=== PATIENT | female | born 1960 | race Caucasian/White ===

== ENCOUNTER → 2020-09-19 07:09 | Outpatient (CLI) | payer BC, SELFPAY ==
--- NOTE | ~2020-09-19 | MM_ITS ---
EXAMINATION: MM screening [facility] BI w ottoniel HISTORY: Screening TECHNIQUE: Craniocaudal and mediolateral oblique 3-D tomosynthesis images were obtained and synthetic 2-D images were generated. CAD analysis was submitted and interpreted. COMPARISON: Comparison to multiple prior studies sequentially, with oldest reviewed study dated 02/18. BREAST PARENCHYMAL COMPOSITION: There are scattered areas of fibroglandular density. FINDINGS: There is no evidence of suspicious mass, calcification, or architectural distortion to sugg est malignancy in either breast. There has been no suspicious interval change. IMPRESSION: 1. No mammographic evidence of malignancy. 2. Recommend routine screening mammography in one year. BI-RADS Category 1: Negative Reviewed, dictated and finalized at location A.
== END ==
PROVIDERS: PCP Family Medicine Adolescent Medicine; Visit Provider Family Medicine Adolescent Medicine
DX: Z12.31 Encounter for screening mammogram for malignant neoplasm of breast (principal)
CPT/HCPCS: 77063; 77067

== ENCOUNTER 2021-12-11 00:12 | Day surgery (SDC) | payer BC, SELFPAY ==
[2021-11-25 15:00] VITALS: BMI 21.7
[2021-12-11 06:56] VITALS: BP 149/86; PULSE 92; RESP 20; TEMP 35.3; O2SAT 100; BMI 21.2
[2021-12-11] MEDS: LACTATED RINGERS 1,000 ML 150 ML IV CONT (07:21)
--- NOTE | 2021-12-11 07:45 | P.PNAN_ITS ---
Anes - Initial Pre Proc Eval Procedure: Operation Date: 12/11/21 08:00 Proposed Procedures p Screening Colonoscopy - Angel Crooks MD Date/Time: 12/11/21 07:45 Surgeon: Angel Crooks MD Pre Op Diagnosis: family hx colon ca, neoplasm screening Patient Data Age: 61 Gender: F Height: 1.57 m Weight: 52.8 kg Last Vital Signs Temp 95.5 F L 12/11/21 06:56 Pulse 92 12/11/21 06:56 Resp 20 12/11/21 06:56 BP 149/86 H 12/11/21 06:56 Pulse Ox 100 12/11/21 06:56 O2 Del Method Room Air 12/11/21 06:56 Allergies Allergy/AdvReac Type Severity Reaction Status Date / Time No Known Allergies Allergy Verified 12/11/21 06:55 Home Medications Medication Instructions Recorded Confirmed Type lisinopril 20 1.5 tablet PO DAILY #90 tabs 09/25/21 12/11/21 Rx mg-hydrochlorothiazide 12.5 mg tablet diclofenac sodium 75 mg See Rx Instructions .Route 10/14/21 12/11/21 Rx tablet,delayed release .COMPLEX #60 tabs Lactobacillus 1 cap PO DAILY 11/25/21 12/11/21 History acidophilus-Bifidobac.animalis 2.5 billion cell capsule (Daily Probiotic) ibuprofen 600 mg tablet 600 mg PO Q6H PRN Pain 11/25/21 12/11/21 History pravastatin 20 mg tablet 20 mg PO DAILY 11/25/21 12/11/21 History Patient hx anesthesia problems: none Family hx anesthesia problems: none Results Review: All pre-operative results and documents have been reviewed as part of the pre- operative evaluation. [facility] Past Medical History Medical History Hypertension Osteopenia Pure hypercholesterolemia, unspecified Surgical History Surgical History History of Family History Family History Mother Colon cancer Father Heart disease Social History Social History (Updated 09/25/21 @ 11:03 by Lou Caballero MA) Smoking status: Former smoker Second hand tobacco smoke exposure: No Alcohol intake: current Drinks per week: 4 Alcohol use details: weekends Substance use: never Substance use type: does not use Living arrangements: with family Gender identity (if verbalized by the patient): Female Sexual Orientation (if Verbalized by the Patient): Straight or Heterosexual Spiritual care concerns: No Agree to blood products: Yes Anes - Eval Final PreProcedure Day of Procedure 12/11/21 07:45 Patient weight: normal Heart: regular rate and rhythm Lungs: clear to auscultation Airway: Mallampati scale class II Neurological: alert and oriented Last oral intake: >/= 8 hours ASA classification: II Emergent: no Anesthetic plan: proceed Anesthesia type and monitoring: general GIVS and standard monitoring Results Review: All pre-operative results and documents have been reviewed as part of the pre- operative evaluation. Informed Consent: The patient's anesthetic plan and its attendant risks and benefits were discussed with the patient/family/POA. Questions were solicited and answers provided to the satisfaction of the patient/family/POA.
--- NOTE | 2021-12-11 07:53 | P.HP_ITS ---
H&P: HPI History of Present Illness Date/Time: 12/11/21 07:53 Chief Complaint: family history of colon cancer. Narrative: This is 61-year-old white female patient referred for colonoscopy. Patient's family history is significant that her mother had colon cancer. Patient reports that her own weight appetite and bowel movements are normal. Patient denies abdominal pain. She has had no bleeding. She presents today for neoplasia screening colonoscopy. [facility] Past Medical History Medical History Hypertension Osteopenia Pure hypercholesterolemia, unspecified Surgical History Surgical History History of Family History Family History Mother Colon cancer Father Heart disease Social History Social History (Updated 09/25/21 @ 11:03 by Lou Caballero MA) Smoking status: Former smoker Second hand tobacco smoke exposure: No Alcohol intake: current Drinks per week: 4 Alcohol use details: weekends Substance use: never Substance use type: does not use Living arrangements: with family Gender identity (if verbalized by the patient): Female Sexual Orientation (if Verbalized by the Patient): Straight or Heterosexual Spiritual care concerns: No Agree to blood products: Yes Meds Home Medications and Allergies Home Medications Medication Instructions Recorded Confirmed Type lisinopril 20 1.5 tablet PO DAILY #90 tabs 09/25/21 12/11/21 Rx mg-hydrochlorothiazide 12.5 mg tablet diclofenac sodium 75 mg See Rx Instructions .Route 10/14/21 12/11/21 Rx tablet,delayed release .COMPLEX #60 tabs Lactobacillus 1 cap PO DAILY 11/25/21 12/11/21 History acidophilus-Bifidobac.animalis 2.5 billion cell capsule (Daily Probiotic) ibuprofen 600 mg tablet 600 mg PO Q6H PRN Pain 11/25/21 12/11/21 History pravastatin 20 mg tablet 20 mg PO DAILY 11/25/21 12/11/21 History Allergies Allergy/AdvReac Type Severity Reaction Status Date / Time No Known Allergies Allergy Verified 12/11/21 06:55 Vital Signs Vital Signs - 24 hr 12/11/21 06:56 Temperature 95.5 F L Pulse Rate 92 Respiratory Rate 20 Blood Pressure 149/86 H Pulse Oximetry 100 Oxygen Delivery Room Air Exam Narrative: Physical exam reveals patient be alert. Vital signs stable. HEENT exam is unremarkable. Patient is anicteric. Lungs are clear to auscultation and percussion. Heart is without murmur or extra sounds. Abdomen bowel sounds are present soft nontender with no organomegaly. Digital external rectal exam is normal. Assessment and Plan Assessment and plan (1) Family history of colon cancer in mother: Code(s): Z80.0 - Family history of malignant neoplasm of digestive organs Status: Acute Assessment and Plan: Patient's mother had colon cancer. Her has had colon cancer. Plan is for surveillance colonoscopy now and consider this a 5 year intervals in the future.
[2021-12-11 08:16] VITALS: BP 121/72; PULSE 62; RESP 20; O2SAT 98
[2021-12-11 08:26] VITALS: BP 106/63; PULSE 64; RESP 20; O2SAT 98
[2021-12-11 08:36] VITALS: BP 114/68; PULSE 64; RESP 18; O2SAT 98
== END 2021-12-11 08:43 | disposition home or self-care (01) ==
PROVIDERS: PCP Family Medicine Adolescent Medicine; Visit Provider Internal Medicine Gastroenterology
PROC: 0DJD8ZZ Inspection of Lower Intestinal Tract, Via Natural or Artificial Opening Endoscopic (ICD-10-PCS; CPT 45378; principal; 2021-12-11 08:00)
DX: Z12.11 Encounter for screening for malignant neoplasm of colon (principal); Z80.0 Family history of malignant neoplasm of digestive organs; K64.8 Other hemorrhoids; I10 Essential (primary) hypertension; M19.90 Unspecified osteoarthritis, unspecified site; E78.00 Pure hypercholesterolemia, unspecified; Z87.891 Personal history of nicotine dependence
CPT/HCPCS: 45378; J2704; J7120

== ENCOUNTER → 2023-05-13 13:03 | Outpatient (CLI) | payer BC, SELFPAY ==
--- NOTE | ~2023-05-13 | MM_ITS ---
EXAMINATION: MM screening [facility] BI w ottoniel HISTORY: Screening TECHNIQUE: Craniocaudal and mediolateral oblique 3-D tomosynthesis images were obtained and synthetic 2-D images were generated. CAD analysis was submitted and interpreted. COMPARISON: Comparison to multiple prior studies sequentially, with oldest reviewed study dated 01/19. BREAST PARENCHYMAL COMPOSITION: Not dense: There are scattered areas of fibroglandular density. FINDINGS: There is increasing prominence of right periareolar asymmetry on CC view. The left breast i s stable without evidence for malignancy. IMPRESSION: 1. Increasing prominence of right periareolar asymmetry on CC view. 2. Additional mammographic views and possible breast ultrasound are recommended. BI-RADS Category 0: Incomplete: Needs additional imaging evaluation. Reviewed, dictated and finalized at location A. [employer] IMPRESSION: 1. Increasing prominence of right periareolar asymmetry on CC view. 2. Additional mammographic views and possible breast ultrasound are recommended . BI-RADS Category 0: Incomplete: Needs additional imaging evaluation.
--- NOTE | ~2023-05-13 | DEXA_ITS ---
Bone Density Report Name: RICARDO MADDEN Age: 63 Sex: Female Ethnicity: White Date of : 1960 Indication: osteopenia; height loss; postmenopausal Referring Provider: ESSENCE LARA Study: Bone densitometry was performed. Exam Date: May 13, 2023 Accession number: [id number] Bone Density: Region BMD T-score Z-score Classification AP Spine (L1, L2) 0.922 -0.5 0.9 Normal Femoral Neck (Left) 0.550 -2.7 -1.3 Osteoporosis Total Hip (Left) 0.735 -1.7 -0.6 Osteopenia Femoral Neck (Right) 0.564 -2.6 -1.2 Osteoporosis Total Hip (Right) 0.720 -1.8 -0.8 Osteopenia Total Hip Mean 0.728 -1.8 -0.7 Osteopenia World Health Organization criteria for BMD impression classify patients as: Normal (T-score at or above -1.0), Osteopenia (T-score between -1.0 and -2.5), or Osteoporosis (T-score at or below -2.5). 10-year Fracture Risk: FRAX not reported because: Some T-score for Spine Total or Hip Total or Femoral Neck at or below -2.5 Previous Exams: Region Exam Age BMD T-score BMD Change BMD Change Date g/cm2 vs Baseline vs Previous AP Spine(L1, L2) 05/13/2023 63 0.922 -0.5 0.232* 0.146* 01/27/2018 57 0.776 -1.8 0.087* 0.043* 01/31/2015 54 0.733 -2.2 0.044* 0.044* 03/01/2012 51 0.689 -2.6 Total Hip(Left) 05/13/2023 63 0.735 -1.7 0.008 -0.030* 01/27/2018 57 0.766 -1.4 0.038* 0.035* 01/31/2015 54 0.731 -1.7 0.004 0.004 03/01/2012 51 0.727 -1.8 Total Hip(Right) 05/13/2023 63 0.720 -1.8 -0.010 -0.010 01/27/2018 57 0.731 -1.7 0.001 0.011 01/31/2015 54 0.720 -1.8 -0.010 -0.010 03/01/2012 51 0.730 -1.7 *Denotes significance at 95% confidence level, LSC for AP Spine = 0.022 g/cm2, LSC for Total Hip = 0.027 g/cm2 Clinical Information Provided by Patient: Patient maximum height was 62.5 Menopause Age: 49 No regular weight bearing exercise Drinks caffeinated beverages Onset of menses at age 13 Number of children 2 Impression: The patient has osteoporosis, based on the Left Femoral Neck T-score. The BMD for the Total Hip(Left) decreased, changing by -0.030 since the last DXA exam. Discussion: INCREASED RISK OF FRACTURE. BONE DENSITY IS UNDESIRABLY LOW AT ONE OR MORE SKELETAL SITES, CONSISTENT WITH POSTMENOPAUSAL OSTEOPOROSIS. This patient's l
== END ==
PROVIDERS: PCP Family Medicine Adolescent Medicine; Visit Provider Family Medicine Adolescent Medicine
DX: Z12.31 Encounter for screening mammogram for malignant neoplasm of breast (principal); Z78.0 Asymptomatic menopausal state; R92.8 Other abnormal and inconclusive findings on diagnostic imaging of breast; M81.0 Age-related osteoporosis without current pathological fracture; M85.852 Other specified disorders of bone density and structure, left thigh; M85.851 Other specified disorders of bone density and structure, right thigh
CPT/HCPCS: 77063; 77067; 77080

== ENCOUNTER 2023-06-09 07:34 | Outpatient (CLI) | payer BC, SELFPAY ==
--- NOTE | ~2023-06-09 | MMUS_ITS ---
EXAMINATION: MM diagnostic [facility] RT w ottoniel, US breast RT limited HISTORY: Follow-up right breast asymmetry TECHNIQUE: Additional 3-D tomosynthesis images of the right breast were performed and synthetic 2-D i mages were generated. CAD analysis was submitted and interpreted. High resolution Limited right breas t ultrasound was performed. COMPARISON: Comparison to multiple prior studies sequentially, with oldest reviewed study dated 01/19. BREAST PARENCHYMAL COMPOSITION: Not dense: There are scattered areas of fibroglandular density. FINDINGS: MAMMOGRAPHIC FINDINGS: There are no suspicious masses, calcifications or architectural distortion of the right breast to sug gest malignancy. ULTRASOUND: Limited right breast ultrasound: Normal heterogeneous echotexture without focal solid or cystic mass. IMPRESSION: 1. No evidence for malignancy in the right breast. 2. Routine yearly screening mammogram and regular clinical breast examination are recommended. BI-RADS Category 1: Negative Reviewed, dictated and finalized at location A. IMPRESSION: 1. No evidence for malignancy in the right breast. 2. Routine yearly screening mammogram and regular clinical breast examination a re recommended. BI-RADS Category 1: Negative
== END 2023-06-09 07:35 ==
LOC: MICIMG 07:35
PROVIDERS: PCP Family Medicine Adolescent Medicine; Visit Provider Family Medicine Adolescent Medicine
DX: R92.8 Other abnormal and inconclusive findings on diagnostic imaging of breast (principal)
CPT/HCPCS: 76642; 77061; 77065; G0279

== ENCOUNTER 2023-12-22 12:24 | Observation (INO) | payer BC, SELFPAY ==
--- NOTE | ~2023-12-22 | CT_ITS ---
EXAMINATION:CT diagnostic chest wo con DATE: 12/22/2023 19:08 INDICATION: Cough. Shortness of breath. TECHNIQUE: Computed tomography (CT) of the chest was performed without intravenous contrast. Automate d exposure control and iterative reconstruction technique were employed. The dose-length product (DLP ) was 123.79 mGy-cm. COMPARISON: None. FINDINGS: There is mild scarring at the lung apices. There is mild atelectasis bilaterally. There is mild bronchiectasis in right middle lobe and lingula. No pleural effusion. The heart size is normal. No pericardial effusion. There is a small sliding hiatal hernia. There is severe thoracic spondylosis . There is mild chronic height loss of multiple vertebral bodies. IMPRESSION: 1. Mild chronic lung disease. 2. Small sliding hiatal hernia. Reviewed, dictated and finalized at location A.
--- NOTE | ~2023-12-22 | XR_ITS ---
EXAMINATION: XR chest 2V DATE: 12/22/2023 17:52 INDICATION: Cough. Nausea and vomiting. TECHNIQUE: Frontal and lateral views of the chest were obtained. COMPARISON: None. FINDINGS: There is mild scarring at the lung apices. No pleural effusion or pneumothorax. The heart s ize is normal. IMPRESSION: 1. Mild scarring at the lung apices. Reviewed, dictated and finalized at location A.
[2023-12-22 12:29] VITALS: BP 165/86; PULSE 105; RESP 16; TEMP 36.5; O2SAT 100
[2023-12-22 16:26] VITALS: BP 158/83; PULSE 94; RESP 15; O2SAT 100
[2023-12-22 17:14] LABS: Basophils Percent Auto 0.3 % (0.2-1.2); Eosinophils Absolute Auto 0.1 K/mm3 (0-0.3); Eosinophils Percent Auto 0.9 % (0-4.4); Hematocrit 33.3 % (37.0-47.0); Hemoglobin 11.9 g/dL (12.0-15.0); Immature Granulocyte Absolute 0.06 K/mm3 (0.00-0.031); Immature Granulocyte Percent A 0.6 % (0-0.5); Immature Platelet Fraction Pct 2.5 % (0.9-11.2); Lymphocytes Absolute Auto 1.22 K/mm3 (0.9-3.2); Lymphocytes Percent Auto 13.1 % (18.3-44.2); Mean Corpuscular HGB Conc 35.7 g/dl (32-36); Mean Corpuscular Hemoglobin 30.7 pg (26-34); Mean Corpuscular Volume 85.8 fl (80-100); Monocytes Absolute Auto 1.1 K/mm3 (0.1-0.6); Monocytes Percent Auto 12.1 % (2.6-8.5); Neutrophils Absolute Auto 6.8 K/mm3 (1.3-6.7); Platelet Count Result 330 k/mm3 (150-375); Red Blood Count 3.88 M/mm3 (4.2-5.4); Red Cell Distribution Width 12.4 % (11.5-14.5); White Blood Count 9.3 K/mm3 (4.5-10.0)
[2023-12-22 17:18] LABS: Appearance Urine Clear (Clear); Bilirubin Urine Negative (Negative); Blood Urine Negative (Negative); Color Urine Yellow (Yellow); Glucose Urine UA Negative (Negative); Ketones Urine 3+ mg/dL (Negative); Leukocyte Esterase Ur Negative LEU/UL (Negative); Nitrate Urine Negative (Negative); Protein Urine Trace mg/dL (Negative); Specific Grav Ur 1.013 (1.001-1.035); Urobilinogen Urine 0.2 mg/dL (<2.0); pH Urine 5.5 (5.0-9.0)
[2023-12-22 17:19] LABS: Add Urine Microscopic? YES; Bacteria Urine None Seen /hpf; Non Pathogenic Casts 0-2; RBC Urine 0-2 /hpf (0-2); Squamous Epithelial Cell Urine None Seen /hpf (Few); WBC Urine 0-5 /hpf (0-3)
[2023-12-22 17:24] LABS: Platelet Estimate Adequate (Adequate); Schistocytes None Seen
[2023-12-22 17:25] LABS: Alanine Aminotransferase 29 U/L (6-35); Albumin Level 4.7 g/dL (3.5-5.1); Alkaline Phosphatase 63 U/L (38-126); Anion Gap 11 mmol/L (4-12); Aspartate Amino Transferase 27 U/L (14-36); Bilirubin,Total 1.3 mg/dL (0.2-1.3); Blood Urea Nitrogen 11 mg/dL (7-17); Calcium 9.2 mg/dL (8.4-10.2); Carbon Dioxide 26 mmol/L (22-30); Chloride 81 mmol/L (98-107); Estimated CRCL calculation 77 ml/min; Estimated Glomerular Filt Rate > 60; Glucose 94 mg/dL (65-110); Lipase 90 U/L (23-300); Sodium 118 mmol/L (137-145)
--- NOTE | 2023-12-22 17:40 | ED.NAVMDI ---
HPI - Nausea/Vomiting/Diarrhea General Chief complaint: Nausea/Vomiting/Diarrhea Stated complaint: N/V, abd pain Time Seen by Provider: 12/22/23 16:20 History of Present Illness HPI Narrative: 63-year-old female with a history of hypertension, osteoporosis presenting with nausea vomiting. Patient states that she has been coughing for a lot was for the last week or 2. She was treated for bronchitis with an inhaler. States that she has recently been on antibiotics and steroids for a skin infection. She has also been taking a lot of Mucinex. States that for the last few days she has had persistent nausea and vomiting and is unable to keep anything down. She is concerned the medications have irritated her stomach. No chest or abdominal pain. No shortness of breath. No fevers. No leg swelling. Related Data Home Medications Medication Instructions Recorded Confirmed Lactobacillus 1 cap PO DAILY 11/25/21 12/19/23 acidophilus-Bifidobac.animalis 2.5 billion cell capsule (Daily Probiotic) ibuprofen 600 mg tablet 600 mg PO Q6H PRN Pain 11/25/21 12/19/23 Allergies Allergy/AdvReac Type Severity Reaction Status Date / Time No Known Allergies Allergy Verified 12/22/23 12:34 Review of Systems Review of Systems: All systems reviewed & are unremarkable except as noted in HPI and below PMFSH Past Medical History Medical History Hypertension Osteopenia Pure hypercholesterolemia, unspecified Surgical History Surgical History History of Family History Family History Mother Colon cancer Father Heart disease Social History Social History Smoking status: Former smoker Second hand tobacco smoke exposure: No Alcohol intake: current Drinks per week: 4 Alcohol use details: weekends Substance use: never Substance use type: does not use Living arrangements: with family Occupation/Education: occupation Gender identity (if verbalized by the patient): Female Sexual Orientation (if Verbalized by the Patient): Straight or Heterosexual Spiritual care concerns: No Agree to blood products: Yes Exam Narrative: GENERAL: Nontoxic, no acute distress, pleasant cooperative HEAD: Normocephalic, atraumatic. EYES: PERRLA and EOMI. ENT: Mucous membranes moist. NECK: Supple. CHEST: Clear to auscultation. No respiratory distress. HEART: Regular rate and rhythm ABDOMEN: Soft, nontender, nondistended EXTREMITIES: Normal range of motion. No edema. SKIN: Warm, dry, no rash. NEURO: No focal deficits. Alert and oriented x3. PSYCH: Normal mood and affect. Course Vital Signs Vital signs: Vital Signs Temperature 97.7 F 12/22/23 12:29 Pulse Rate 105 H 12/22/23 12:29 Respiratory Rate 16 12/22/23 12:29 Blood Pressure 165/86 H 12/22/23 12:29 Pulse Oximetry 100 12/22/23 12:29 Temperature 97.7 F 12/22/23 12:29 Pulse Rate 85 12/22/23 21:53 Respiratory Rate 18 12/22/23 21:53 Blood Pressure 141/76 H 12/22/23 21:53 Pulse Oximetry 98 12/22/23 21:53 MDM - Nausea/Vomiting/Diarrhea MDM Narrative Medical decision making narrative: 63-year-old female presenting with nausea and vomiting as well as productive cough. Vitals are stable. Exam remarkable for the above. Blood work concerning for a sodium of 118. Chest imaging shows no acute abnormalities. IV fluids are ongoing. Patient requires admission for further management of hyponatremia. She is agreeable with this plan. I spoke with the hospitalist who has accepted her for admission. Differential Diagnosis Differential diagnosis: Likely dehydration and other (Nausea and vomiting, hyponatremia) Medical Records Attestation: I reviewed the patient's medical records. Lab Data
[2023-12-22] MEDS: SODIUM CHLORIDE 0.9% IV 1,000 ML 999 ML IV CONT ×2 (17:52→19:29)
[2023-12-22] MEDS: ONDANSETRON INJ 4 MG/2 ML VIAL IV PUSH (17:53)
[2023-12-22] MEDS: FAMOTIDINE 20 MG/2 ML VIAL IV PUSH (17:53)
[2023-12-22 18:58] VITALS: BP 145/76; PULSE 98; RESP 18; O2SAT 100
[2023-12-22 19:16] LABS: Influenza A QL RT-PCR Negative (Negative); Influenza B QL RT-PCR Negative (Negative); RSV RNA, RT-PCR Negative (Negative); SARS-CoV-2 RNA PCR Negative (Negative)
[2023-12-22 19:46] LABS: Creatinine Urine 31.5 mg/dL
[2023-12-22 19:48] LABS: Sodium Urine Random 11 meq/L
--- NOTE | 2023-12-22 20:40 | PM.IMHP ---
H&P: HPI History of Present Illness Date/Time: 12/22/23 20:40 Chief Complaint: cough Narrative: this is a 63-year-old female with past medical history significant for hypertension, osteopenia, DJD, chronic obstructive pulmonary disease, dyslipidemia. Patient presents to the emergency room due to a week of persistent cough, shortness of breath, patient had been to the urgent care which she was prescribed Solu pack and Z-Bruce, however patient with persistent cough, dry, unable to take anything p.o. preliminary workup was significant for sodium 118. Patient was ruled out for COVID-19 influenza type A influenza type B and RSV EXAMINATION: XR chest 2V DATE: 12/22/2023 17:52 INDICATION: Cough. Nausea and vomiting. TECHNIQUE: Frontal and lateral views of the chest were obtained. COMPARISON: None. FINDINGS: There is mild scarring at the lung apices. No pleural effusion or pneumothorax. The heart size is normal. IMPRESSION: 1. Mild scarring at the lung apices. EXAMINATION:CT diagnostic chest wo con DATE: 12/22/2023 19:08 INDICATION: Cough. Shortness of breath. TECHNIQUE: Computed tomography (CT) of the chest was performed without intravenous contrast. Automated exposure control and iterative reconstruction technique were employed. The dose-length product (DLP) was 123.79 mGy-cm. COMPARISON: None. FINDINGS: There is mild scarring at the lung apices. There is mild atelectasis bilaterally. There is mild bronchiectasis in right middle lobe and lingula. No pleural effusion. The heart size is normal. No pericardial effusion. There is a small sliding hiatal hernia. There is severe thoracic spondylosis. There is mild chronic height loss of multiple vertebral bodies. IMPRESSION: 1. Mild chronic lung disease. 2. Small sliding hiatal hernia. Review of Systems Review of Systems: Cough, nausea, vomiting, poor per orally intake. [facility], [facility] Past Medical History Medical History Hypertension Osteopenia Pure hypercholesterolemia, unspecified Surgical History Surgical History History of Family History Family History Mother Colon cancer Father Heart disease Social History Social History Smoking status: Former smoker Second hand tobacco smoke exposure: No Alcohol intake: current Drinks per week: 4 Alcohol use details: weekends Substance use: never Substance use type: does not use Do You Feel Safe in your Home?: Yes Lack of Transportation: No Lack of Food: Never True Current Housing: I Have Housing Concerned About Future Housing: No Difficulty Paying Gas/Electric Bills: No Difficulty Paying for Meds: No Currently Unemployed: No Education: High School Diploma/GED Difficulty w/ Childcare or Family Care: No Living arrangements: with family Occupation/Education: occupation Gender identity (if verbalized by the patient): Female Sexual Orientation (if Verbalized by the Patient): Straight or Heterosexual Spiritual care concerns: No Agree to blood products: Yes Meds Home Medications and Allergies Home Medications Medication Instructions Recorded Confirmed Type Lactobacillus 1 cap PO DAILY 11/25/21 12/22/23 History acidophilus-Bifidobac.animalis 2.5 billion cell capsule (Daily Probiotic) ibuprofen 600 mg tablet 600 mg PO Q6H PRN Pain 11/25/21 12/22/23 History alendronate 70 mg tablet 70 mg PO WEEKLY #13 tabs 05/18/23 12/22/23 Rx lisinopril 20 See Rx Instructions .Route 08/15/23 12/22/23 Rx mg-hydrochlorothiazide 12.5 mg .COMPLEX #135 tabs tablet atorvastatin 20 mg tablet 20 mg PO DAILY #90 tabs 10/02/23 12/22/23 Rx diclofenac sodium 75 mg See Rx Instructions .Route 11/20/23 12/22/23 Rx tablet,delayed rele
[2023-12-22 21:27] VITALS: O2SAT 98
[2023-12-22 21:53] VITALS: BP 141/76; PULSE 85; RESP 18; O2SAT 98
[2023-12-22 22:14] VITALS: BMI 22.2
[2023-12-22 22:23] LABS: Glucose Point of Care 73 mg/dl (65-105)
--- NOTE | 2023-12-22 22:26 | ADMGEN ---
This patient, Jessica Marin, was admitted to Medical Room 343-01. Patient/family oriented to hospital policies and general routines including ID bracelet, bed and alarms, visiting hours, pain management, procedures, bathroom and other care routines, personal items, smoking policy, room service/diet, and visiting hours. Information on how to activate the Rapid Response Team has been discussed. Patient/Family are encouraged to report perceived risks to care and to ask questions if they do not understand what they are told or what they should do.
[2023-12-22 22:36] VITALS: BP 164/84; PULSE 107; RESP 18; TEMP 36.7; O2SAT 99
[2023-12-22 23:40] LABS: Anion Gap 11 mmol/L (4-12); Blood Urea Nitrogen 9 mg/dL (7-17); Carbon Dioxide 23 mmol/L (22-30); Chloride 92 mmol/L (98-107); Estimated CRCL calculation 65 ml/min; Estimated Glomerular Filt Rate > 60; Glucose 106 mg/dL (65-110); Potassium 3.6 mmol/L (3.4-5.0); Sodium 126 mmol/L (137-145)
[2023-12-22] MEDS: guaiFENesin/DEXTROMETHORPHAN 10 ML UDC PO (23:51)
[2023-12-22] MEDS: ACETAMINOPHEN 500 MG TABLET 1000 MG PO (23:52)
[2023-12-23] VITALS: PULSE 93
[2023-12-23 04:00] VITALS: PULSE 76
[2023-12-23] MEDS: guaiFENesin/DEXTROMETHORPHAN 10 ML UDC PO ×5 (04:36→21:13)
[2023-12-23 06:00] VITALS: BP 112/71; PULSE 70; RESP 16; TEMP 36.3; O2SAT 99
--- NOTE | 2023-12-23 07:44 | PM.IMPN ---
Progress Note: A&P Assessment and Plan (1) Hyponatremia: Code(s): E87.1 - Hypo-osmolality and hyponatremia Status: Acute Assessment and Plan: Na 118 on admission. Etiology likely dehydration from multiple emesis episodes and poor oral intake. Received 2 1L fluid bolus in the ED and Na 128. - IV NS 100 ml/hr - Repeat Na level - add urine osmolality, serum osmolality, and urine sodium - no focal deficits on exam, situational/short term memory recall - Monitor I&Os, vital signs, neuro status and patient is a fall risk - Monitor serum electrolytes and CBC (2) Nausea & vomiting: Code(s): R11.2 - Nausea with vomiting, unspecified Status: Acute Assessment and Plan: Patient states for the past few days she has had profuse vomiting, unable to keep anything down. Denies sick contacts. - Covid/flu/rsv negative - see plan above 12/22: Patient denies vomiting, but still feels a bit nauseous. Tolerating her current diet well. (3) Hypertension: Code(s): I10 - Essential (primary) hypertension Status: Acute Assessment and Plan: Chronic, well controlled on home medication. - Lisinopril 20 mg-HCTZ 12.5 mg daily - Monitor Time Spent With Patient Time with patient: 25 - 35 minutes Subjective Date/time seen: 12/23/23 07:44 Interval history: 63 year old female with past medical history of hypertension, osteopenia, hypercholesterolemia, and COPD presents to the hospital for persistent cough and shortness of breath. Patient is pleasant sitting on her couch with at bedside. She states she is feeling better today, but continues to have mild nausea. She denies any vomiting at this time. She has been able to tolerate her current diet. Patients sodium level has risen to 128 on am labs. Will resume her IV fluids and reassess level tonight. Likely that the sodium was low due to dehydration and emesis. Patient denies any increased gait instability, confusion, tremors, lightheadedness/dizziness. She also denies chest pain, shortness of breath, palpitations and abdominal pain. Review of Systems Review of Systems: All systems reviewed & are unremarkable except as noted in HPI and below Exam Narrative: AF HR 70 RR 16 SpO2 99 BP 112/71 General: female in no acute respiratory distress who is nontoxic appearing, sitting on her couch HEENT: Normocephalic. Atraumatic. Extraocular movement intact. Sclera clear and anicteric. No facial asymmetry. Chest: Lungs are clear to auscultation bilaterally. No wheezes or crackles. CV: Heart was regular rate and rhythm. S1-S2. No murmurs, gallops, or rubs. Abd: Abdomen was soft. Nontender. Nondistended. Positive bowel sounds. No organomegaly or masses. Ext: No clubbing, cyanosis, or edema. Neuro: Patient is alert and oriented x4. Cranial nerves 2-12 are intact. Speech is clear. Objective Data Vital Signs Vital Signs: Vital Signs - 24 hr 12/22/23 12:29 12/22/23 16:26 12/22/23 18:58 Temperature 97.7 F Pulse Rate 105 H 94 98 Respiratory Rate 16 15 18 Blood Pressure 165/86 H 158/83 H 145/76 H Pulse Oximetry 100 100 100 Oxygen Delivery 12/22/23 21:53 12/22/23 22:36 12/23/23 00:00 Temperature 98.1 F Pulse Rate 85 107 H 93 Respiratory Rate 18 18 Blood Pressure 141/76 H 164/84 H Pulse Oximetry 98 99 Oxygen Delivery 12/22/23 21:27 12/23/23 04:00 12/23/23 06:00 Temperature 97.3 F L Pulse Rate 76 70 Respiratory Rate 16 Blood Pressure 112/71 Pulse Oximetry 98 99 Oxygen Delivery Room Air Intake/Output Intake/Output: Intake & Output 12/20/23 12/21/23 12/22/23 12/23/23 23:59 23:59 23:59 23:59 Intake Total 1999 480 Output Total 800 Balance 2000 -320 Meds/Results Medications: Active Medications Generic Name Dose Route Start Last Admin Trade Name Freq PRN Reason Stop Dose Admin Acetaminophen 1,000 mg 12/22/23 23:27 12/22/23 23:52 Acetaminophen 500 Mg Tablet PO 1,000 mg
[2023-12-23 08:04] VITALS: PULSE 81
[2023-12-23] MEDS: ACETAMINOPHEN 500 MG TABLET 1000 MG PO ×3 (08:04→21:12)
[2023-12-23 08:42] LABS: Basophils Absolute Auto 0.1 K/mm3 (0.0-0.1); Basophils Percent Auto 0.9 % (0.2-1.2); Eosinophils Absolute Auto 0.1 K/mm3 (0-0.3); Hematocrit 30.7 % (37.0-47.0); Hemoglobin 10.5 g/dL (12.0-15.0); Immature Granulocyte Absolute 0.06 K/mm3 (0.00-0.031); Immature Granulocyte Percent A 0.9 % (0-0.5); Lymphocytes Percent Auto 15.7 % (18.3-44.2); Mean Corpuscular HGB Conc 34.2 g/dl (32-36); Mean Corpuscular Hemoglobin 30.3 pg (26-34); Mean Corpuscular Volume 88.5 fl (80-100); Mean Platelet Volume 8.8 fl (7.4-10.4); Monocytes Absolute Auto 0.8 K/mm3 (0.1-0.6); Monocytes Percent Auto 12.3 % (2.6-8.5); Neutrophils Absolute Auto 4.3 K/mm3 (1.3-6.7); Neutrophils Percent Auto 68.2 % (45.5-73.1); Platelet Count Result 301 k/mm3 (150-375); Red Blood Count 3.47 M/mm3 (4.2-5.4); Red Cell Distribution Width 12.6 % (11.5-14.5); White Blood Count 6.4 K/mm3 (4.5-10.0)
[2023-12-23 08:53] LABS: Alanine Aminotransferase 25 U/L (6-35); Albumin Level 4.1 g/dL (3.5-5.1); Alkaline Phosphatase 52 U/L (38-126); Anion Gap 8 mmol/L (4-12); Aspartate Amino Transferase 25 U/L (14-36); Bilirubin,Total 0.7 mg/dL (0.2-1.3); Blood Urea Nitrogen 9 mg/dL (7-17); Calcium 9.1 mg/dL (8.4-10.2); Carbon Dioxide 25 mmol/L (22-30); Chloride 95 mmol/L (98-107); Estimated CRCL calculation 65 ml/min; Estimated Glomerular Filt Rate > 60; Glucose 97 mg/dL (65-110); Potassium 3.9 mmol/L (3.4-5.0); Sodium 128 mmol/L (137-145)
[2023-12-23] MEDS: SODIUM CHLORIDE 0.9% IV 1,000 ML 100 ML IV CONT (13:54)
[2023-12-23 14:00] VITALS: BP 110/62; PULSE 83; RESP 18; TEMP 36.6; O2SAT 100
[2023-12-23 19:13] LABS: Sodium 131 mmol/L (137-145)
[2023-12-23 22:35] VITALS: BP 136/71; PULSE 88; RESP 20; TEMP 36.4; O2SAT 100
[2023-12-24] MEDS: guaiFENesin/DEXTROMETHORPHAN 10 ML UDC PO ×2 (01:30→05:40)
[2023-12-24] MEDS: SODIUM CHLORIDE 0.9% IV 1,000 ML 100 ML IV CONT ×2 (01:31→11:34)
[2023-12-24] MEDS: ACETAMINOPHEN 500 MG TABLET 1000 MG PO (05:40)
[2023-12-24 05:49] LABS: Basophils Absolute Auto 0.1 K/mm3 (0.0-0.1); Basophils Percent Auto 0.9 % (0.2-1.2); Eosinophils Absolute Auto 0.2 K/mm3 (0-0.3); Eosinophils Percent Auto 3.3 % (0-4.4); Hematocrit 28.7 % (37.0-47.0); Hemoglobin 9.6 g/dL (12.0-15.0); Immature Granulocyte Absolute 0.06 K/mm3 (0.00-0.031); Immature Granulocyte Percent A 0.9 % (0-0.5); Lymphocytes Absolute Auto 1.17 K/mm3 (0.9-3.2); Mean Corpuscular HGB Conc 33.4 g/dl (32-36); Mean Corpuscular Hemoglobin 29.8 pg (26-34); Mean Corpuscular Volume 89.1 fl (80-100); Mean Platelet Volume 8.8 fl (7.4-10.4); Monocytes Absolute Auto 0.7 K/mm3 (0.1-0.6); Monocytes Percent Auto 10.6 % (2.6-8.5); Neutrophils Absolute Auto 4.6 K/mm3 (1.3-6.7); Neutrophils Percent Auto 67.3 % (45.5-73.1); Platelet Count Result 293 k/mm3 (150-375); Red Blood Count 3.22 M/mm3 (4.2-5.4); Red Cell Distribution Width 12.6 % (11.5-14.5); White Blood Count 6.9 K/mm3 (4.5-10.0)
[2023-12-24 06:00] VITALS: BP 131/80; PULSE 87; RESP 20; TEMP 36.3; O2SAT 98
[2023-12-24 06:03] LABS: Alanine Aminotransferase 21 U/L (6-35); Albumin Level 3.5 g/dL (3.5-5.1); Alkaline Phosphatase 46 U/L (38-126); Anion Gap 7 mmol/L (4-12); Aspartate Amino Transferase 21 U/L (14-36); Bilirubin,Total 0.3 mg/dL (0.2-1.3); Blood Urea Nitrogen 8 mg/dL (7-17); Calcium 8.5 mg/dL (8.4-10.2); Carbon Dioxide 23 mmol/L (22-30); Chloride 101 mmol/L (98-107); Estimated CRCL calculation 77 ml/min; Estimated Glomerular Filt Rate > 60; Glucose 94 mg/dL (65-110); Potassium 3.7 mmol/L (3.4-5.0); Sodium 131 mmol/L (137-145)
--- NOTE | 2023-12-24 09:11 | PM.IMPN ---
Progress Note: A&P Assessment and Plan (1) Hyponatremia: Code(s): E87.1 - Hypo-osmolality and hyponatremia Status: Acute Assessment and Plan: Na 118 on admission. Etiology likely dehydration from multiple emesis episodes and poor oral intake. Received 2 1L fluid bolus in the ED and Na 128. - IV NS 100 ml/hr - Repeat Na level - add urine osmolality, serum osmolality, and urine sodium - no focal deficits on exam, situational/short term memory recall - Monitor I&Os, vital signs, neuro status and patient is a fall risk - Monitor serum electrolytes and CBC 12/23- na 131 (2) Nausea & vomiting: Code(s): R11.2 - Nausea with vomiting, unspecified Status: Acute Assessment and Plan: Patient states for the past few days she has had profuse vomiting, unable to keep anything down. Denies sick contacts. - Covid/flu/rsv negative - see plan above 12/22: Patient denies vomiting, but still feels a bit nauseous. Tolerating her current diet well. (3) Hypertension: Code(s): I10 - Essential (primary) hypertension Status: Acute Assessment and Plan: Chronic, well controlled on home medication. - Lisinopril 20 mg-HCTZ 12.5 mg daily - Monitor Time Spent With Patient Time with patient: Greater than 35 minutes Subjective Date/time seen: 12/24/23 09:11 Interval history: 63 year old female with past medical history of hypertension, osteopenia, hypercholesterolemia, and COPD presents to the hospital for persistent cough and shortness of breath. Patient is pleasant sitting on her couch with at bedside. She states she is feeling better today, but continues to have mild nausea. She denies any vomiting at this time. She has been able to tolerate her current diet. Patients sodium level has risen to 128 on am labs. Will resume her IV fluids and reassess level tonight. Likely that the sodium was low due to dehydration and emesis. Patient denies any increased gait instability, confusion, tremors, lightheadedness/dizziness. She also denies chest pain, shortness of breath, palpitations and abdominal pain. 12/23- assuming care- pt is seen and examined. Review of Systems Review of Systems: Cough, nausea, vomiting, poor per orally intake. All systems reviewed & are unremarkable except as noted in HPI and below Exam Narrative: AF HR 70 RR 16 SpO2 99 BP 112/71 General: female in no acute respiratory distress who is nontoxic appearing, sitting on her couch HEENT: Normocephalic. Atraumatic. Extraocular movement intact. Sclera clear and anicteric. No facial asymmetry. Chest: Lungs are clear to auscultation bilaterally. No wheezes or crackles. CV: Heart was regular rate and rhythm. S1-S2. No murmurs, gallops, or rubs. Abd: Abdomen was soft. Nontender. Nondistended. Positive bowel sounds. No organomegaly or masses. Ext: No clubbing, cyanosis, or edema. Neuro: Patient is alert and oriented x4. Cranial nerves 2-12 are intact. Speech is clear. Const: General: comfortable, no acute distress, well developed, alert, awake, tired appearing and thin Nutritional Appearance: thin Orientation/consciousness: patient oriented x3 Other: coughing HENMT: Head: normal to inspection, normocephalic and atraumatic Ears: hearing grossly normal bilaterally Face/Nose/Sinus: normal facial exam Face and sinus: normal facial exam Eyes: General: appearance normal, both eyes and all related structures Pupils: Equal, round and reactive pupils present EOM: EOMs intact bilaterally Neck: Neck: full ROM, no lymphadenopathy and no JVD Thyroid: thyroid normal Lymphatic: no lymphadenopathy noted Resp: Effort & Inspection: normal respiratory effort and able to speak in complete sentences Auscultation: clear to auscultation bilaterally Cardio: Jugular venous distension: no JVD Rate: regular rate Rhythm: regular rhythm Heart sounds: S1 normal heart sound present and S2 normal heart sound present : General
--- NOTE | 2023-12-24 10:53 | PC.NURSE ---
Patient sitting on the side of the bed. She has concerns about her IV. Very scant amount of leakage under Tegaderm. No pain, redness, or swelling noted. Patient educated this can happen when IV is in the AC. Will continue to monitor site. Patient cooperative and bit emotional as she states she is just tired of the cough. Told her I would ask for Tessalon Pearls, as the Robitussen is not working, and to see if we can DC the fluids.
[2023-12-24] MEDS: BENZONATATE 100 MG CAPSULE 200 MG PO (12:32)
--- NOTE | 2023-12-24 12:46 | PM.DS ---
DS: Admitting Diagnosis Discharge Date 12/22 Admitting Diagnosis cough DS: Discharge Diagnosis Discharge Diagnosis (1) Hyponatremia: Code(s): E87.1 - Hypo-osmolality and hyponatremia Status: Acute Assessment and Plan: Na 118 on admission. Etiology likely dehydration from multiple emesis episodes and poor oral intake. Received 2 1L fluid bolus in the ED and Na 128. - IV NS 100 ml/hr - Repeat Na level - add urine osmolality, serum osmolality, and urine sodium - no focal deficits on exam, situational/short term memory recall - Monitor I&Os, vital signs, neuro status and patient is a fall risk - Monitor serum electrolytes and CBC 12/23- na 131 (2) Nausea & vomiting: Code(s): R11.2 - Nausea with vomiting, unspecified Status: Acute Assessment and Plan: Patient states for the past few days she has had profuse vomiting, unable to keep anything down. Denies sick contacts. - Covid/flu/rsv negative - see plan above 12/22: Patient denies vomiting, but still feels a bit nauseous. Tolerating her current diet well. (3) Hypertension: Code(s): I10 - Essential (primary) hypertension Status: Acute Assessment and Plan: Chronic, well controlled on home medication. - Lisinopril 20 mg-HCTZ 12.5 mg daily - Monitor DS: Summary Hospital Course Hospital Course: Interval history: 63 year old female with past medical history of hypertension, osteopenia, hypercholesterolemia, and COPD presents to the hospital for persistent cough and shortness of breath. Prior to admission, she was seen in urgent care and was prescribed Solu pack and Z-Bruce with no improvement. Her sodium improved to 131 and remained stable for couple of days. She had not been c/o nausea and reports no vomiting. We started her in Tessalon pearls. and she was stable for discharge with instructions to have a close f/u with PCP with a week for monitoring of her Na as well as resolution of her cough Status at Discharge Functional status at discharge: independent ambulation Overall status at discharge: patient is progressing back to baseline Time Spent with Patient Time attestation: Total time spent providing and/or coordinating discharge services: Time spent: Greater than 30 minutes Exam Narrative: General: female in no acute respiratory distress who is nontoxic appearing HEENT: Normocephalic. Atraumatic. Extraocular movement intact. Sclera clear and anicteric. No facial asymmetry. Chest: Lungs are clear to auscultation bilaterally. No wheezes or crackles. CV: Heart was regular rate and rhythm. S1-S2. No murmurs, gallops, or rubs. Abd: Abdomen was soft. Nontender. Nondistended. Positive bowel sounds. No organomegaly or masses. Ext: No clubbing, cyanosis, or edema. Neuro: Patient is alert and oriented x4. Cranial nerves 2-12 are intact. Speech is clear. Const: General: comfortable, no acute distress, well developed, alert and awake Orientation/consciousness: patient oriented x3 Other: coughing HENMT: Head: normal to inspection, normocephalic and atraumatic Ears: hearing grossly normal bilaterally Face/Nose/Sinus: normal facial exam Face and sinus: normal facial exam Eyes: General: appearance normal, both eyes and all related structures Pupils: Equal, round and reactive pupils present EOM: EOMs intact bilaterally Neck: Neck: full ROM, no lymphadenopathy and no JVD Thyroid: thyroid normal Lymphatic: no lymphadenopathy noted Resp: Effort & Inspection: normal respiratory effort and able to speak in complete sentences Auscultation: clear to auscultation bilaterally Cardio: Jugular venous distension: no JVD Rate: regular rate Rhythm: regular rhythm Heart sounds: S1 normal heart sound present and S2 normal heart sound present : General: Yes deferred Skin: Rashes: no rashes Wounds: no wounds Neuro: General: patient oriented x3 and CN's II-XI intact bilaterally Cranial nerves: Yes CN's II-X
[2023-12-24 13:59] VITALS: BP 135/67; PULSE 94; RESP 16; TEMP 37.1; O2SAT 100
== END 2023-12-24 14:05 | disposition home or self-care (01) ==
LOC: ANHED 16:35 → ANH3MED 21:59
PROVIDERS: Admitting Provider Internal Medicine; Emergency Provider Emergency Medicine; PCP Family Medicine Adolescent Medicine; Visit Provider Student in an Organized Health Care Education/Training Program
DX: E87.1 Hypo-osmolality and hyponatremia (principal); R11.2 Nausea with vomiting, unspecified; J44.89 Other specified chronic obstructive pulmonary disease; I10 Essential (primary) hypertension; E78.00 Pure hypercholesterolemia, unspecified; M85.80 Other specified disorders of bone density and structure, unspecified site; M19.042 Primary osteoarthritis, left hand; M19.041 Primary osteoarthritis, right hand; Z20.822 Contact with and (suspected) exposure to COVID-19; Z79.899 Other long term (current) drug therapy; Z87.891 Personal history of nicotine dependence
CPT/HCPCS: 36415; 71046; 71250; 80048; 80053; 81001; 82570; 82948; 83690; 83930; 83935; 84295; 84300; 85025; 85055; 87637; 96361; 96374; 96375; 99285; A9270; G0378; J2405; J7030

== ENCOUNTER 2024-05-15 08:16 | Outpatient (CLI) | payer BC, SELFPAY ==
--- NOTE | ~2024-05-15 | MM_ITS ---
EXAMINATION: MM screening [facility] BI w ottoniel HISTORY: Screening mammogram TECHNIQUE: Craniocaudal and mediolateral oblique 3-D tomosynthesis images were obtained and synthetic 2-D images were generated. CAD analysis was submitted and interpreted. COMPARISON: 06/09/2023, 05/13/2023, 09/19/2020 BREAST PARENCHYMAL COMPOSITION:Not Dense. There are scattered areas of fibroglandular density. FINDINGS: No suspicious mass, calcification, or architectural distortion are identified in either nabil ast to suggest malignancy. There has been no suspicious interval change. IMPRESSION: No mammographic evidence of malignancy. Recommend routine screening mammography in one year. BI-RADS Category 1: Negative Reviewed, dictated and finalized at location . NISTRATIVE ASST
== END 2024-05-15 08:17 | disposition home or self-care (01) ==
LOC: ANHIMG 08:16
PROVIDERS: PCP Family Medicine Adolescent Medicine; Visit Provider Family Medicine Adolescent Medicine
DX: Z12.31 Encounter for screening mammogram for malignant neoplasm of breast (principal)
CPT/HCPCS: 77063; 77067

== ENCOUNTER 2025-01-16 13:37 | Outpatient (CLI) | payer BC, SELFPAY ==
--- NOTE | ~2025-01-16 | XR_ITS ---
EXAMINATION: [id number], 01/16/2025 13:42 CDT HISTORY: LT ANTERIOR LATERAL RIB PAIN AFTER FALL TUESDAY COMPARISON: No comparisons available. Findings: No acute fracture or malalignment. No significant degenerative changes. Soft tissues unremarkable. Impression: No acute fracture or malalignment. Reviewed, dictated and finalized at location P. Impression: No acute fracture or malalignment.
== END 2025-01-16 13:38 | disposition home or self-care (01) ==
PROVIDERS: PCP Family Medicine; Visit Provider Family Medicine
DX: R07.89 Other chest pain (principal)
CPT/HCPCS: 71111